=== PATIENT | female | born 2000 | race Caucasian/White ===

== ENCOUNTER 2020-11-16 12:30 | Outpatient (RCR) | payer OTHER | END 2021-02-14 | disposition home or self-care (01) | LOC: CARD 12:30 | PROVIDERS: ATTEND Family Medicine | DX: R00.0 Tachycardia, unspecified (principal); R00.1 Bradycardia, unspecified | CPT/HCPCS: 93225; 93226 ==

== ENCOUNTER → 2021-02-16 | Outpatient (CLI) | payer OTHER | LOC: LABNPT 04:39 | PROVIDERS: ATTEND Family Medicine | DX: Z20.822 Contact with and (suspected) exposure to COVID-19 (principal) | CPT/HCPCS: 87635 ==